=== PATIENT | male | born 2000 | race Asian ===

== ENCOUNTER 2020-01-15 23:34 | Emergency (ER) | payer BC ==
[~2020-01-15] VITALS: Ht 188 cm; Wt 106.6 kg
[2020-01-15 23:45] VITALS: BP_SYST 161
[2020-01-16] MEDS ORDERED: LIDOCAINE VISCOUS 2%, 15 ML UDC MM ONE (00:15)
[2020-01-16] MEDS ORDERED: MAG-AL HYDROX/SIMETH 30 ML UDC PO ONE (00:15)
[2020-01-16] MEDS ORDERED: DICYCLOMINE HCL 10 MG/5 ML SOLUTION PO ONE (00:15)
[2020-01-16] MEDS ORDERED: KETOROLAC TROMETHAMINE 30 MG VIAL IVP ONE (00:45)
[2020-01-16] MEDS ORDERED: PANTOPRAZOLE SODIUM 40 MG/VIAL (PROTONIX) IVP ONE (00:45)
[2020-01-16] MEDS ORDERED: NACL 0.9% 1,000 ML IV ONE ×2 (00:45)
[2020-01-16 01:19] LABS: BASOPHILS % (AUTO) 0.2 % (0.0-2.0); EOSINOPHILS % (AUTO) 0.3 % (0.0-4.0); HEMOGLOBIN 11.8 g/dL (14.0-18.0); MONOCYTES # (AUTO) 1.2 K/uL (0.0-1.0)
[2020-01-16 01:23] LABS: HEMATOCRIT 37.6 % (36-54); LYMPHOCYTES # (AUTO) 2.3 K/uL (1.0-5.5); LYMPHOCYTES % (AUTO) 14.6 % (20.5-51.5); MEAN CORPUSCULAR HEMOGLOBIN 20 pg (27-31); MEAN CORPUSCULAR HGB CONC 32 % (32-36); MEAN CORPUSCULAR VOLUME 62 fL (79.0-98.0); MONOCYTES % (AUTO) 7.3 % (1.7-9.3); NEUTROPHILS # (AUTO) 12.3 K/uL (1.8-7.7); NEUTROPHILS % (AUTO) 77.6 % (40.0-70.0); PLATELET COUNT (AUTO) 270 K/uL (130-430); RED BLOOD CELL COUNT(AUTO) 6.03 MIL/uL (4.2-6.2); RED CELL DISTRIBUTION WIDTH 15.6 % (9.0-15.0); WHITE BLOOD COUNT (AUTO) 15.8 K/uL (4.5-11.0)
[2020-01-16 01:32] LABS: CALCIUM 9.2 mg/dL (8.4-11.0); CREATININE 0.75 mg/dL (0.55-1.30); POTASSIUM 3.4 mmol/L (3.5-5.1)
[2020-01-16 01:38] LABS: ALBUMIN 4.5 g/dL (3.4-4.8); TOTAL BILIRUBIN 0.5 mg/dL (0.0-1.0)
[2020-01-16 02:32] VITALS: BP_SYST 155
== END 2020-01-16 02:30 | disposition home or self-care (01) ==
LOC: SED 23:34
DX: K29.70 Gastritis, unspecified, without bleeding (principal)
CPT/HCPCS: 36415; 74176; 76700; 80053; 83690; 85025; 96361; 96374; 96375; 99285; C9113; J1885; J2001; J7030